=== PATIENT | male | born 1970 | race Caucasian/White ===

== ENCOUNTER 2020-02-16 21:46 | Inpatient (IN) | payer BC ==
[2020-02-16 22:23] LABS: ABS Eosinophils 0.1 10^3/ul (0-0.6); ABS Lymphocytes 1.4 10^3/ul (1.0-4.8); ABS Monocytes 0.6 10^3/ul (0-0.8); Eosinophil % 1.1 %; Hematocrit 44 % (42-52); Hemoglobin 15.4 g/dL (14.0-18.0); Lymphocyte % 17.6 %; Mean Corpuscular HGB Conc 35 g/dL (31-36); Mean Corpuscular Hemoglobin 30 pg (27-31); Mean Corpuscular Volume 86 fL (80-94); Mean Platelet Volume 8.8 fL (7.4-10.4); Platelet Count 193 10^3/uL (150-450); Red Blood Count 5.11 10^6 /uL (4.18-5.48); Red Cell Distribution Width 13 % (10-15); White Blood Count 7.8 10^3/uL (3.5-10.8)
[2020-02-16] MEDS ORDERED: NS 0.9% 1000 ml BAG 1,000 ML IV ONE (22:26)
[2020-02-16] MEDS ORDERED: Ondansetron 4 mg VIAL 2 MG/ML 2 ml VIAL IV ONE (22:26)
[2020-02-16] MEDS ORDERED: Pantoprazole VIAL 40 MG VIAL IV ONE (22:26)
[2020-02-16 22:28] LABS: INR 1.1 (0.82-1.09)
[2020-02-16 22:42] LABS: Albumin 4.5 g/dL (3.2-5.2); Albumin/Globulin Ratio 1.5 (1-3); BUN/Creatinine Ratio 13.8 (8-20); C Reactive Protein 2.39 mg/L (<8.01); Calcium 9.1 mg/dL (8.6-10.3); EGFR Non-African American 58.7 (>60); Globulin 3.1 g/dL (2-4); Potassium 3.7 mmol/L (3.5-5.0); Total Bilirubin 0.4 mg/dL (0.2-1.0); Total Protein 7.6 g/dL (6.4-8.9)
[2020-02-16] MEDS ORDERED: Iodixanol (CONTRAST) 320 MG/ML 100 ML SDV IV ONE (22:59)
[2020-02-16 23:00] LABS: Urine Appearance Turbid; Urine Bilirubin Negative (Negative); Urine Blood Negative (Negative); Urine Color Yellow; Urine Glucose Negative (Negative); Urine Ketones Negative (Negative); Urine Nitrite Negative (Negative); Urine Protein Negative (Negative); Urine Specific Gravity 1.015 (1.010-1.030); Urine Urobilinogen Negative (Negative)
[2020-02-17] MEDS ORDERED: Ondansetron 4 mg VIAL 2 MG/ML 2 ml VIAL IV PRN (01:19)
[2020-02-17] MEDS ORDERED: HYDROmorphone 0.5 MG/0.5 ML SYRINGE IV ONE (01:20)
[2020-02-17] MEDS: Lactated Ringers 1000 ml BAG 1,000 ML IV SCH (02:40)
[2020-02-17] MEDS: HYDROmorphone 0.5 MG/0.5 ML SYRINGE IV SLOW PU PRN ×2 (04:36→07:20)
[2020-02-17 06:24] LABS: ABS Basophils 0.1 10^3/ul (0-0.2); ABS Lymphocytes 1.4 10^3/ul (1.0-4.8); ABS Monocytes 0.8 10^3/ul (0-0.8); Eosinophil % 0.4 %; Hematocrit 45 % (42-52); Hemoglobin 15.7 g/dL (14.0-18.0); Lymphocyte % 13.2 %; Mean Corpuscular HGB Conc 35 g/dL (31-36); Mean Corpuscular Hemoglobin 31 pg (27-31); Mean Corpuscular Volume 88 fL (80-94); Mean Platelet Volume 8.9 fL (7.4-10.4); Platelet Count 205 10^3/uL (150-450); Red Blood Count 5.11 10^6 /uL (4.18-5.48); Red Cell Distribution Width 13 % (10-15); White Blood Count 10.5 10^3/uL (3.5-10.8)
[2020-02-17 06:35] LABS: BUN/Creatinine Ratio 10.3 (8-20); C Reactive Protein 2.89 mg/L (<8.01); Calcium 8.9 mg/dL (8.6-10.3); EGFR African American 80.2 (>60); EGFR Non-African American 66.3 (>60); Potassium 3.6 mmol/L (3.5-5.0)
[2020-02-17] MEDS ORDERED: Buffered Lidocaine 1% SYRIN 1 ml INTRADERM ONE (11:49)
[2020-02-17] MEDS ORDERED: Lactated Ringers 1000 ml BAG 1,000 ML IV SCH (12:00)
[2020-02-17] MEDS ORDERED: Bupivacaine 0.25% EPI 200,000 30 ML SDV ONE (12:54)
[2020-02-17] MEDS ORDERED: ceFOXitin 2 GM IVPREMIX (*) 2 GM/50 ML BAG ONE (13:00)
[2020-02-17] MEDS ORDERED: Midazolam 2 mg/2 ml VIAL 1 mg/ml 2 ml VIAL (2 mg) ONE (13:04)
[2020-02-17] MEDS ORDERED: fentaNYL 250 mcg/5 ml 50 MCG/ML 5 ml VIAL (250 MCG) ONE (13:04)
[2020-02-17] MEDS ORDERED: Lidocaine 2% PF 5 ML VIAL ONE (13:05)
[2020-02-17] MEDS ORDERED: Succinylcholine 200 mg VIAL 20 mg/ml 10 ml VIAL (200 mg) ONE (13:09)
[2020-02-17] MEDS ORDERED: Rocuronium 50 mg VIAL 10 mg/ml 5 ml VIAL (50 mg) ONE (13:09)
[2020-02-17] MEDS ORDERED: Dexamethasone IV 4 MG/ML VIAL 1 ml VIAL ONE (16:13)
[2020-02-17] MEDS ORDERED: Ondansetron 4 mg VIAL 2 MG/ML 2 ml VIAL ONE (16:13)
[2020-02-17] MEDS ORDERED: Acetaminophen IV 1 GM/100ML 100 ML ONE (16:33)
[2020-02-17] MEDS ORDERED: Prochlorperazine 5 mg/ml 2 ml VIAL (10 mg) IV PRN (16:36)
[2020-02-17] MEDS ORDERED: HYDROmorphone 1 MG/1 ML SYRINGE ONE (16:36)
[2020-02-17] MEDS ORDERED: diPHENhydraMINE IV 50 MG/ML 1 ml VIAL (BENADRYL) IV PRN (16:36)
[2020-02-17] MEDS ORDERED: Naloxone 0.4 mg VIAL 0.4 mg/ml 1 ml VIAL IV PRN (16:36)
[2020-02-17] MEDS ORDERED: HYDROmorphone 1 MG/1 ML SYRINGE IV PRN (16:36)
[2020-02-17] MEDS ORDERED: Phenylephrine 40 mcg/mL 10mL (400mcg) SYRINGE ONE (16:44)
[2020-02-17] MEDS ORDERED: Neostigmine Methylsulfate 3 MG/3 ML SYRINGE ONE (17:09)
[2020-02-17] MEDS: oxyCODONE/Acetamin 5/325 mg TAB PO PRN (22:15)
[2020-02-18] MEDS: Lactated Ringers 1000 ml BAG 1,000 ML IV SCH (03:02)
[2020-02-18 07:49] VITALS: BP 124/70
[2020-02-18] MEDS: oxyCODONE/Acetamin 5/325 mg TAB PO PRN (07:58)
== END 2020-02-18 11:30 | disposition home or self-care (01) | DRG 224 ==
LOC: ED 21:46 → SSU 02-17 01:19 → OBSVTOIN 02-17 11:00
PROVIDERS: ADMIT Surgery; ATTEND Surgery